=== PATIENT | male | born 1990 | race Caucasian/White ===

== ENCOUNTER 2017-05-18 16:55 | Emergency (ER) | payer MEDICAID, OTHER ==
[2017-05-18 17:55] VITALS: BP 133/73; PULSE 100; RESP 17; TEMP 98.1; O2SAT 96
[2017-05-18] MEDS ORDERED: TDAP ADULT 0.5 ML INJ (BOOSTRIX) IM ONE (18:21)
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
[2017-05-18] MEDS ORDERED: fentaNYL 100 MCG/2 ML INJ ONE (19:25)
[2017-05-18] MEDS ORDERED: LORazepam 2 MG/ML INJ ONE (19:27)
[2017-05-18] MEDS ORDERED: fentaNYL 100 MCG/2 ML INJ IVP ONE (19:30)
[2017-05-18] MEDS ORDERED: LORazepam 2 MG/ML INJ IVP ONE (19:30)
== END 2017-05-18 20:17 | disposition home or self-care (01) ==
LOC: EDUNIT#
PROC: 0HQ0XZZ Repair Scalp Skin, External Approach (ICD-10-PCS; principal; 2017-05-18)
PROC: 0HQCXZZ Repair Left Upper Arm Skin, External Approach (ICD-10-PCS; 2017-05-18)
DX: S01.01XA Laceration without foreign body of scalp, initial encounter (principal); S41.011A Laceration without foreign body of right shoulder, initial encounter; Z23 Encounter for immunization; V13.0XXA Pedal cycle driver injured in collision with car, pick-up truck or van in nontraffic accident, initial encounter; Y92.410 Unspecified street and highway as the place of occurrence of the external cause; Y99.8 Other external cause status; Y93.55 Activity, bike riding
CPT/HCPCS: 96374; J2060; J3010

== ENCOUNTER 2018-09-22 17:02 | Emergency (ER) | payer BC, MEDICAID, OTHER ==
[2018-09-22] MEDS ORDERED: NS 1,000 ML IV ONE (17:49)
[2018-09-22] MEDS ORDERED: ONDANSETRON 4 MG/2 ML VIAL IVP ONE (17:49)
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
[2018-09-22 18:06] LABS: PLATELET COUNT 205 10^3/uL (150-400)
[2018-09-22 19:28] VITALS: BP 118/67
== END 2018-09-22 19:26 | disposition home or self-care (01) ==
DX: R11.0 Nausea (principal); E86.9 Volume depletion, unspecified
CPT/HCPCS: 96374; J2405